=== PATIENT | female | born 1960 | race Caucasian/White ===

== ENCOUNTER → 2018-04-14 | Outpatient (CLI) | payer OTHER ==
[~2018-04-14] VITALS: Ht 177.8 cm; Wt 66.2 kg
[~2018-04-14] MED LIST: ACULAR 0.5100 DROP/5 LEFT EYE; ADVAIR 250/501 DISK IH; CENTRUM SILVER1 EAC3 PO; CLARITIN-D 21 TABLET PO; CRESTOR40 MG PO; CYANOCOBALAM1000 MCG PO; CYMBALTA60 MG PO; DESYREL100 MG PO; DIAZEPAM10 MG PO; DURAGESIC75 MCG TD; FENOFIBRATE160 M1 PO; FISH OIL 1,0001 EAC7 PO; FLEXERIL10 MG PO; MAGNESIUM250 MG PO; PERCOCET 10/1 TABLET PO; PRILOSEC20 MG PO; PROAIR RESPICL90 MCG IH; PROBIOTIC1 EAC2 PO; PROVENTIL,2.5 MG/3 M IH; VITAMIN B COMP1 EACH PO; VITAMIN B-6100 MG PO; VITAMIN D33000 UNIT PO
[2018-04-14 13:29] LABS: CHLORIDE 102 MEQ/L (99-109); GFR ESTIMATE (CALCULATED) > 59 mL/min/; GLUCOSE 71 mg/dL (70-99); POTASSIUM 5.8 MEQ/L (3.7-5.4); SODIUM 140 MEQ/L (136-147); UREA NITROGEN (BUN) 18 mg/dL (9-23)
== END | disposition home or self-care (01) ==
LOC: AMB 12:06
PROVIDERS: Internal Medicine
DX: K29.70 Gastritis, unspecified, without bleeding (principal); K57.30 Diverticulosis of large intestine without perforation or abscess without bleeding; K64.8 Other hemorrhoids; K21.9 Gastro-esophageal reflux disease without esophagitis; J45.909 Unspecified asthma, uncomplicated; G89.29 Other chronic pain; K59.00 Constipation, unspecified; E55.9 Vitamin D deficiency, unspecified; E78.5 Hyperlipidemia, unspecified; Z87.891 Personal history of nicotine dependence
CPT/HCPCS: 80048; 84132 91; 88305; 88342 TC